=== PATIENT | female | born 1985 | race Caucasian/White ===

== ENCOUNTER 2017-03-31 07:59 | Outpatient (CLI) | payer BC ==
--- NOTE | 2017-03-31 10:02 | ULT ---
SOFT TISSUE ULTRASOUND NECK: FINDINGS: Ultrasound of submandibular region performed. There are enlarged bilateral submandibular lymph nodes seen which correspond to the history of palpable adenopathy. On the right there is 1 lymph node emilie suring 3.8 x 1.0 x 2.0 cm. On the left, there is an enlarged lymph node measuring 3.0 x 0.6 x 1.7 cm . IMPRESSION: Submandibular adenopathy confirmed by ultrasound. POS: DEVON
== END 2017-03-31 08:00 | disposition home or self-care (01) ==
LOC: ULT 07:59
PROVIDERS: ATTEND Internal Medicine
DX: J35.1 Hypertrophy of tonsils (principal); R59.0 Localized enlarged lymph nodes
CPT/HCPCS: 76536

== ENCOUNTER 2017-05-18 08:06 | Day surgery (SDC) | payer BC ==
[2017-05-17 13:51] VITALS: BMI 27.0
[2017-05-18] MEDS ORDERED: Fentanyl 100 MCG/2 ML VIAL ONE (08:54)
[2017-05-18] MEDS ORDERED: Midazolam HCl 2 mg/2 ml Vial ONE (08:54)
[2017-05-18 09:19] LABS: Hemoglobin 12.9 g/dL (12.0-16.0)
[2017-05-18 09:32] LABS: BHCG - Serum Negative (NEGATIVE); Pregs Control Background? CLEAR/WHITE (CLR/WHITE); Pregs Control Bar Appear? YES (CONTROL BAR)
[2017-05-18] MEDS ORDERED: Ferric Subsulfate 8 ML BOT ONE (09:49)
[2017-05-18] MEDS ORDERED: Lidocaine 1% PF 5 ML VIAL ONE (14:22)
[2017-05-18] MEDS ORDERED: Propofol 200 MG/20 ML VIAL ONE (14:22)
[2017-05-18] MEDS ORDERED: Ondansetron HCl/PF 4 MG/2 ML Vial ONE (14:22)
[2017-05-18] MEDS ORDERED: Dexamethasone 20 MG/5 ML VIAL ONE (14:22)
[2017-05-18] MEDS ORDERED: Succinylcholine Chloride 20 MG/ML 10 ml SYRINGE FS ONE (14:22)
--- NOTE | 2017-05-18 21:12 | OP ---
PREOPERATIVE DIAGNOSES: 1. Chronic adenotonsillitis. 2. Adenotonsillar hypertrophy. POSTOPERATIVE DIAGNOSES: 1. Chronic adenotonsillitis. 2. Adenotonsillar hypertrophy. PROCEDURE: Tonsillectomy and adenoidectomy. SURGEON: Dr. Zain Johnson ESTIMATED BLOOD LOSS: 0 mL COMPLICATIONS: None. ANESTHESIA: GETA. PROCEDURE IN DETAIL: After consent was obtained, the patient was identified, brought to the operating room, and placed on the operating table in the supine position. General endotracheal anesthesia and intravenous access was obtained and we proceeded with positioning the patient for oropharyngeal surge ry. Oropharyngeal exposure was obtained with a Elvi-Cheikh mouth gag after a head drape was placed an d secured with a towel clip. The Elvi-Cheikh mouth gag was then suspended from the Galvez tray and [place] peter elevation was achieved with a red rubber catheter. The right tonsil was addressed first. We used a curved Allis to grasp the tonsil and retract it medially as an anterior pillar incision was made. The retrotonsillar fascial plane was then established and blunt dissection was performed with the suc tion cautery. Blood vessels were anticipated, identified, and cauterized as they were encountered. Ul timately, dissection was carried to the posterior tonsillar pillar mucosa which was incised hemostati jaylan, as well as the base of tongue connection. The tonsil was then passed off as a specimen and ble eding points within the tonsillar bed were cauterized under direct visualization. We subsequently tur alejandro our attention to the contralateral side, where using a similar technique, a near identical proced ure was performed. Again, the tonsil was grasped and retracted medially with a curved Allis. The retr otonsillar fascial plane was established and while the anterior pillar was retracted medially, the he mostatic blunt dissection of the tonsil with a suction cautery was performed with blood vessels antic ipated, identified, and cauterized as they were encountered. Again, dissection continued to the base of tongue and posterior tonsillar pillar mucosa which was incised in a hemostatic fashion. The tonsi llar beds were then carefully inspected and bleeding points were identified and cauterized with a suc tion cautery. After this portion of the procedure, hemostasis was completely obtained. Under direct m irror visualization, we visualized the adenoid pad. Under direct mirror visualization, we removed the bulk of the adenoid tissue with the adenoid curette. We then packed the nasopharynx for an appropria te period of time with Levi-Synephrine saturated tonsillar sponges. After a period of observation, we removed the pack. Under indirect mirror visualization, we obtained hemostasis and vaporization of res idual adenoid tissue with electrocautery. The patient's oral cavity was copiously irrigated with iced saline and subsequently suctioned. After completion of the procedure, the nasal cavity and oropharyn x were irrigated and suctioned as were the gastric contents. The patient was then awakened and transf erred to the recovery room where the patient remained in stable condition prior to discharge to [facility]
== END 2017-05-18 12:30 | disposition home or self-care (01) ==
LOC: SDC 08:06
PROVIDERS: ATTEND Otolaryngology Plastic Surgery within the Head & Neck
DX: J35.03 Chronic tonsillitis and adenoiditis (principal); Z88.1 Allergy status to other antibiotic agents; Z79.899 Other long term (current) drug therapy
CPT/HCPCS: 36415; 84703; 85014; 85018; 88304; J1100; J2001; J2175; J2250; J2405; J2704; J3010